=== PATIENT | female | born 1990 | race Two or more races ===

== ENCOUNTER 2017-09-12 15:10 | Emergency (ER) | payer OTHER ==
[~2017-09-12] VITALS: Ht 157.5 cm; Wt 54.5 kg
[2017-09-12 15:10] VITALS: BP 150/67
[~2017-09-12 15:10] MED LIST: ACET50TA PO; IBUP60TA PO; PREN27TA3 PO
== END 2017-09-12 16:18 | disposition home or self-care (01) ==
LOC: M ED 15:10
DX: O99.89 Other specified diseases and conditions complicating pregnancy, childbirth and the puerperium (principal); A08.4 Viral intestinal infection, unspecified; O99.340 Other mental disorders complicating pregnancy, unspecified trimester; F31.9 Bipolar disorder, unspecified; F60.3 Borderline personality disorder; O99.330 Smoking (tobacco) complicating pregnancy, unspecified trimester; F17.210 Nicotine dependence, cigarettes, uncomplicated; Z3A.00 Weeks of gestation of pregnancy not specified; Z88.8 Allergy status to other drugs, medicaments and biological substances

== ENCOUNTER 2017-11-09 11:04 | Inpatient (IN) | payer OTHER ==
[2017-11-09 12:12] LABS: BASO % 0.2 % (0.0-1.0); EOS # 0.1 10^3/uL (0.0-0.50); EOS % 0.8 % (0.0-3.0); HEMATOCRIT 35.7 % (36.0-47.0); HEMOGLOBIN 12.1 g/dl (12.0-16.0); IMMATURE GRANULOCYTE # 0.1 10^3/uL (0-0); IMMATURE GRANULOCYTE % 0.5 % (0-0); LYMPH # 2.7 10^3/uL (1.5-6.5); LYMPH % 25.3 % (24.0-44.0); MEAN CORPUSCULAR HEMOGLOBIN 29.1 pg (27.0-33.0); MEAN CORPUSCULAR HGB CONC 33.9 g/dl (32.0-36.5); MEAN CORPUSCULAR VOLUME 85.8 fl (80.0-96.0); MONO # 0.5 10^3/uL (0.0-0.8); MONO % 4.8 % (0.0-5.0); NEUTROPHILS # 7.3 10^3/uL (1.8-7.7); NEUTROPHILS % 68.4 % (36.0-66.0); PLATELET COUNT, AUTOMATED 303 10^3/uL (150-450); RED BLOOD COUNT 4.16 10^6/uL (4.00-5.40); RED CELL DISTRIBUTION WIDTH 13.2 % (11.5-14.5); WHITE BLOOD COUNT 10.6 10^3/uL (4.0-10.0)
[2017-11-09] MEDS: LACTATED RINGER'S 1000 ML IV (12:27)
[2017-11-09] MEDS: PENICILLIN G POTASSIUM IV 5 MU in D5W MINI-BAG PLUS 100 ML IV (12:27)
[2017-11-09 12:36] LABS: AMPHETAMINES URINE REFLEX NEGATIVE (NEGATIVE); BARBITURATES URINE REFLEX NEGATIVE (NEGATIVE); BENZODIAZEPINES URINE REFLEX NEGATIVE (NEGATIVE); METHADONE URINE REFLEX NEGATIVE (NEGATIVE); PHENCYCLIDINE URINE REFLEX NEGATIVE (NEGATIVE)
[2017-11-09 12:37] LABS: CANNABINOIDS URINE REFLEX POSITIVE (NEGATIVE); COCAINE METABOLITE URINE REFLE POSITIVE (NEGATIVE); OPIATES URINE REFLEX POSITIVE (NEGATIVE)
[2017-11-09 13:00] LABS: HBSAG L&D NEGATIVE (NEGATIVE)
[2017-11-09 13:55] LABS: CONTROL LINE INT CTR LINE PRESENT; HIV SCRN NEGATIVE (NEGATIVE); HIV SCRN1 NEGATIVE (NEGATIVE)
[2017-11-09] MEDS ORDERED: OXYTOCIN 30 UNITS IN 0.9% NaCl 500ML IV BAG (J2590) As Ordered (14:23)
[2017-11-09] MEDS ORDERED: OXYTOCIN DRIP 30 UNITS in APPROPRIATE DILUENT 1 EA IV (14:45)
[2017-11-09] MEDS: LR 1,000 ML IV (14:48)
[2017-11-09 15:24] LABS: CORD GAS ABE A -1.4; CORD GAS ABE V -1.7; CORD GAS HCO3 A 22.9 MEQ/L; CORD GAS HCO3 V 22.3 MEQ/L; CORD GAS O2 SAT A 84.2 %; CORD GAS O2 SAT V 86.5 %; CORD GAS PCO2 A 37.8 mmHg; CORD GAS PCO2 V 36.4 mmHg; CORD GAS PH A 7.401 UNITS; CORD GAS PH V 7.406 UNITS; CORD GAS PO2 A 34.7 mmHg; CORD GAS PO2 V 37.6 mmHg; CORD GAS SBC A 22.9 MEQ/L; CORD GAS SBC V 22.7 MEQ/L; CORD GAS TCO2 A 24.1 MEQ/L; CORD GAS TCO2 V 23.5 MEQ/L
[2017-11-09] MEDS: OXYTOCIN DRIP 30 UNITS in APPROPRIATE DILUENT 1 EA IV (15:24)
[2017-11-09] MEDS ORDERED: MEASLES,MUMPS,RUBELLA VACCINE INJ (MMR-II) (90707) SC (15:45)
[2017-11-09] MEDS ORDERED: METHYLERGONOVINE MALEATE 0.2 MG TAB PO (15:45)
[2017-11-09] MEDS ORDERED: DIBUCAINE 1% OINTMENT 30GM TOP (15:45)
[2017-11-09] MEDS ORDERED: DOCUSATE SODIUM 100 MG CAP PO (15:45)
[2017-11-09] MEDS ORDERED: ONDANSETRON 4MG/2ML VIAL (J2405) IV (15:45)
[2017-11-09] MEDS: IBUPROFEN 800 MG TAB PO (16:06)
[2017-11-09] MEDS ORDERED: PENICILLIN G POTASSIUM IV 2.5 MU in APPROPRIATE DILUENT 1 EA IV (16:30)
[2017-11-09] MEDS: RHOGAM 300 MCG (1500 IU) INJ (J2790) IM (18:03)
[2017-11-09] MEDS: ACETAMINOPHEN 500 MG TAB PO (18:09)
[2017-11-09] MEDS: NICOTINE POLACRILEX 2 MG GUM PO (22:14)
[2017-11-10] MEDS: ACETAMINOPHEN 500 MG TAB PO (00:11)
[2017-11-10] MEDS: IBUPROFEN 800 MG TAB PO ×2 (00:12→09:05)
[2017-11-10] MEDS: NICOTINE POLACRILEX 2 MG GUM PO ×2 (00:14→09:54)
[2017-11-10] MEDS ORDERED: INFLUENZA QUADRIVALENT PF VACCINE 0.5ML SYRINGE (90686) IM (09:00)
[2017-11-10] MEDS: PRENATAL VITAMINS CHEWABLE TABLET PO (09:05)
[2017-11-10] MEDS: ADACEL/BOOSTRIX VACCINE (DIPHTH/PERTUSS/ACELL/TETANUS)0.5ML SYR (90715) IM (09:05)
[2017-11-10 11:35] LABS: RUBELLA IgG QUALITATIVE IMMUNE (IMMUNE)
[2017-11-10 12:04] LABS: HIV 1&2 SCREEN CENTAUR NEGATIVE (NEGATIVE)
[2017-11-10 12:46] LABS: HEPATITIS C VIRUS ABY INDEX > 11.0 INDEX (<0.8)
[2017-11-11] MEDS ORDERED: INFLUENZA QUADRIVALENT PF VACCINE 0.5ML SYRINGE (90686) IM (09:00)
== END 2017-11-10 13:30 | disposition home or self-care (01) | DRG 560 ==
LOC: M LDO 11:04 → M LDI 11:36 → M OBS 17:11
PROVIDERS: Specialist
PROC: 10E0XZZ Delivery of Products of Conception, External Approach (ICD-10-PCS; principal; 2017-11-09)
DX: O60.14X0 Preterm labor third trimester with preterm delivery third trimester, not applicable or unspecified (principal); F17.210 Nicotine dependence, cigarettes, uncomplicated; Z3A.36 36 weeks gestation of pregnancy; O99.334 Smoking (tobacco) complicating childbirth; O99.824 Streptococcus B carrier state complicating childbirth; Z37.0 Single live birth

== ENCOUNTER 2018-08-07 20:41 | Emergency (ER) | payer OTHER ==
[2018-08-07] MEDS: NORCO 5/325MG TABLET (BULK FOR ED) PO (22:23)
== END 2018-08-07 22:25 | disposition home or self-care (01) ==
LOC: M ED 20:41
DX: K08.89 Other specified disorders of teeth and supporting structures (principal); K02.9 Dental caries, unspecified; F31.9 Bipolar disorder, unspecified; F17.200 Nicotine dependence, unspecified, uncomplicated; Z88.8 Allergy status to other drugs, medicaments and biological substances; Z79.3 Long term (current) use of hormonal contraceptives
CPT/HCPCS: 99283

== ENCOUNTER 2018-09-12 20:40 | Emergency (ER) | payer OTHER | END 2018-09-12 22:26 | disposition home or self-care (01) | LOC: M ED 20:40 | DX: J00 Acute nasopharyngitis [common cold] (principal) | CPT/HCPCS: 99283 ==

== ENCOUNTER 2019-07-26 18:46 | Emergency (ER) | payer OTHER ==
[~2019-07-26] VITALS: Ht 157.5 cm; Wt 63.7 kg
[~2019-07-26 18:46] MED LIST changes: -ACET50TA PO; +AUGM875T28 PO; +CLAR5TAB7 PO; +DEPO150I IM; +HYDR-3715 PO; +IBUP600T42 PO; -IBUP60TA PO; +MAPA500T2 PO
[2019-07-26 18:47] VITALS: BP 140/79
[2019-07-26 22:51] LABS: BASO % 0.4 % (0.0-1.0); EOS # 0.1 10^3/uL (0.0-0.5); EOS % 1.3 % (0.0-3.0); HEMATOCRIT 40.6 % (36.0-47.0); HEMOGLOBIN 13.4 g/dl (12.0-15.5); LYMPH # 3.8 10^3/uL (1.5-5.0); LYMPH % 47.8 % (24.0-44.0); MEAN CORPUSCULAR HEMOGLOBIN 31.1 pg (27.0-33.0); MEAN CORPUSCULAR VOLUME 94.2 fl (80.0-96.0); MONO # 0.5 10^3/uL (0.0-0.8); MONO % 5.9 % (0.0-5.0); NEUTROPHILS # 3.5 10^3/uL (1.5-8.5); NEUTROPHILS % 44.3 % (36.0-66.0); PLATELET COUNT, AUTOMATED 408 10^3/uL (150-450); RED BLOOD COUNT 4.31 10^6/uL (4.00-5.40)
[2019-07-26 23:04] LABS: BLOOD UREA NITROGEN 15 MG/DL (7-18); CALCIUM LEVEL 9.4 MG/DL (8.5-10.1); CARBON DIOXIDE LEVEL 26 MEQ/L (21-32); CHLORIDE LEVEL 111 MEQ/L (98-107); CREATININE FOR GFR 0.64 MG/DL (0.55-1.30); GLOMERULAR FILTRATION RATE > 60.0 (>60); GLUCOSE, FASTING 89 MG/DL (70-100); HCG, SERUM QUANTITATIVE 148 MIU/ML; SODIUM LEVEL 142 MEQ/L (136-145)
== END 2019-07-26 23:48 | disposition left against medical advice (07) ==
LOC: M ED 18:46
DX: M54.2 Cervicalgia (principal); Z88.8 Allergy status to other drugs, medicaments and biological substances; F17.210 Nicotine dependence, cigarettes, uncomplicated